=== PATIENT | male | born 1955 | race Caucasian/White ===

== ENCOUNTER 2018-10-27 16:26 | Inpatient (IN) | payer OTHER ==
[2018-10-27 17:32] LABS: Urine Appearance Cloudy; Urine Bacteria Absent (Absent); Urine Bilirubin Negative (Negative); Urine Blood 2+ (Negative); Urine Color Yellow; Urine Glucose Negative (Negative); Urine Ketones Negative (Negative); Urine Nitrite Negative (Negative); Urine Protein 1+(30 mg/dL) (Negative); Urine Red Blood Cell 3+(>10/hpf) (Absent); Urine Urobilinogen Negative (Negative); Urine White Blood Cell 3+(>20/hpf) (Absent)
[2018-10-27] MEDS ORDERED: Acetaminophen TAB* 325 MG PO ONE (20:13)
[2018-10-27] MEDS ORDERED: Morphine 4 MG/ML VIAL (1 ml) 4 MG/ML VIAL IV ONE (20:13)
[2018-10-27] MEDS ORDERED: NS 0.9% 1000 ML** 1,000 ML IV.FLUID IV ONE (20:14)
[2018-10-27] MEDS ORDERED: Ondansetron INJ* 2 MG/ML VIAL IV ONE (20:15)
[2018-10-27] MEDS ORDERED: cefTRIAXone(*) 1 GM in NS 0.9% 50 ML* 50 ML IVPB ONE (20:15)
--- NOTE | 2018-10-27 20:25 | ED ---
GI/ HPI - HPI Summary HPI Summary: 63-year-old male presents with abdominal pain for the past week. He has lab work and ultrasound on sunday and they thought it was pancreatitis as gurtheris. He states he was prescribe pain medication. They did not do a urine culture. He states that since yesterday he's been having urinary symptoms like dysuria. no hx of uti but does have hx of bph. He is also been having fever and chills. He admits to abdominal pain diffuse. denies any back pain. Denies any cough. No chest pain or shortness of breath. He states he just feels ill. - History of Current Complaint Chief Complaint: EDAbdPain Time Seen by Provider: 10/27/18 20:06 Stated Complaint: ACUTE PANCREATITIS PER PT Pain Intensity: 8 - Allergy/Home Medications Allergies/Adverse Reactions: Allergies Allergy/AdvReac Type Severity Reaction Status Date / Time No Known Allergies Allergy Verified 10/27/18 20:14 Home Medications: Home Medications Ezetimibe 10 mg PO DAILY 10/27/18 [History Confirmed 10/27/18] Gemfibrozil 600 mg PO BID 10/27/18 [History Confirmed 10/27/18] Lisinopril 10 mg PO DAILY 10/27/18 [History Confirmed 10/27/18] Omeprazole 40 mg PO DAILY 10/27/18 [History Confirmed 10/27/18] Tamsulosin HCl 0.4 mg PO BID 10/27/18 [History Confirmed 10/27/18] PMH/Surg Hx/FS Hx/Imm Hx Endocrine/Hematology History: Denies: Hx Anticoagulant Therapy Cardiovascular History: Reports: Hx Hypertension GI History: Reports: Other GI Disorders - pancreatitis Infectious Disease History: No Infectious Disease History: Denies: Traveled Outside the [place] in Last 30 Days - Family History Known Family History: Positive: Non-Contributory - Social History Alcohol Use: None Substance Use Type: Reports: None Smoking Status (MU): Light Every Day Tobacco Smoker Review of Systems Positive: Fever, Chills Negative: Chest Pain Negative: Shortness Of Breath Positive: Abdominal Pain All Other Systems Reviewed And Are Negative: Yes Physical Exam Triage Information Reviewed: Yes Vital Signs On Initial Exam: Initial Vitals Temp Pulse Resp BP Pulse Ox 99.9 F 129 16 118/82 94 10/27/18 16:33 10/27/18 16:33 10/27/18 16:33 10/27/18 16:33 10/27/18 16:33 Vital Signs Reviewed: Yes Appearance: Positive: Ill-Appearing Skin: Positive: Warm, Dry Head/Face: Positive: Normal Head/Face Inspection Eyes: Positive: Normal, EOMI, CORRIE, Conjunctiva Clear ENT: Positive: Pharynx normal, TMs normal Respiratory/Lung Sounds: Positive: Clear to Auscultation, Breath Sounds Present Cardiovascular: Positive: Normal, RRR Abdomen Description: Positive: Soft, CVA Tenderness (R), CVA Tenderness (L), Other: - moderate diffuse abd pain Bowel Sounds: Positive: Present Musculoskeletal: Positive: Normal Neurological: Positive: Normal Psychiatric: Positive: Normal Diagnostics - Vital Signs Vital Signs Temp Pulse Resp BP Pulse Ox 10/27/18 20:23 101.1 F 10/27/18 20:14 117 110/78 95 10/27/18 20:12 117 96 10/27/18 19:46 99.8 F 112 18 106/68 94 10/27/18 17:49 100.0 F 124 17 125/64 98 10/27/18 16:33 99.9 F 129 16 118/82 94 - Laboratory Lab Results: Lab Results 10/27/18 Range/Units 17:19 Urine Color Yellow Urine Appearance Cloudy Urine pH 5.0 (5-9) Ur Specific [place] 1.020 (1.010-1.030) Urine Protein 1+(30 mg/dl) A (Negative) Urine Ketones Negative (Negative) Urine Blood 2+ A (Negative) Urine Nitrate Negative (Negative) Urine Bilirubin Negative (Negative) Urine Urobilinogen Negative (Negative) Ur Leukocyte Esterase 3+ A (Negative) Urine WBC (Auto) 3+(>20/hpf) A (Absent) Urine RBC (Auto) 3+(>10/hpf) A (Absent) Urine Bacteria Absent (Absent) Urine Glucose Negative (Negative) Urine Ascorbic Acid * A (Negative) Result Diagrams: 10/27/18 20:31 10/27/18 20:31 Lab Statement: Any lab studies that have been ordered have been reviewed, and results considered in the medical decision making process. Re-Evaluation - Re-Evaluation First Eval Re-Evaluation Time: 21:51 Comment: feeling better, 02 decreased so placed on oxygen Second Eval Re-Evaluation Time: 22:58 Comment: blood pressure dropped though could be related to morphine GIGU Course/Dx - Course Course Of Treatment: 63-year-old male presents with abdominal pain for the past week. He has lab work and ultrasound on sunday and they thought it was pancreatitis as gurtheris. He states he was prescribe pain medication. They did not do a urine culture. He states that since yesterday he's been having urinary symptoms like dysuria. no hx of uti but does have hx of bph. He is also been having fever and chills. He admits to abdominal pain diffuse. denies any back pain. Denies any cough. No chest pain or shortness of breath. He states he just feels ill. On exam patient is tachycardic and has a fever. Lungs clear auscultation. Abdomen moderate diffuse tenderness. wbc 19. crp elevated. urine shows uti. gave dose of rocephin. gave morphine and after o2 stats drop and became hypotensive. gave fluids as a bolus after second line. believe hypotension in more likely due to morphine rather than severe sepsis at this point. discussed case with dr villanueva who agrees to admit. - Diagnoses Differential Diagnoses - Male: Pancreatitis, Pyelonephritis, Urinary Tract Infection Provider Diagnoses: UTI (urinary tract infection), Sepsis - Critical Care Time Critical Care Time: 30-74 min - 60 Discharge - Sign-Out/Discharge Documenting (check all that apply): Patient Departure - Discharge Plan Condition: Stable Disposition: ADMITTED TO [facility] - Billing Disposition and Condition Condition: STABLE Disposition: Admitted to [facility]
[2018-10-27 20:45] LABS: ABS Monocytes 1.3 10^3/ul (0-0.8); Eosinophil % 0.2 %; Hematocrit 48 % (42-52); Hemoglobin 16.2 g/dL (14.0-18.0); Mean Corpuscular HGB Conc 34 g/dL (31-36); Mean Corpuscular Hemoglobin 31 pg (27-31); Mean Corpuscular Volume 90 fL (80-94); Platelet Count 237 10^3/uL (150-450); Red Blood Count 5.28 10^6 /uL (4.18-5.48); Red Cell Distribution Width 14 % (10-15); White Blood Count 19.4 10^3/uL (3.5-10.8)
[2018-10-27 20:52] LABS: Activated Partial Thrombo Time 36.4 seconds (26.0-38.0); INR 1.09 (0.82-1.09)
[2018-10-27 20:59] LABS: Albumin 4.5 g/dL (3.2-5.2); Albumin/Globulin Ratio 1.8 (1-3); BUN/Creatinine Ratio 14.8 (8-20); C Reactive Protein 29.65 mg/L (<8.01); Calcium 9.5 mg/dL (8.6-10.3); EGFR Non-African American 64.4 (>60); Globulin 2.5 g/dL (2-4); Potassium 3.8 mmol/L (3.5-5.0); Total Bilirubin 0.8 mg/dL (0.2-1.0)
[2018-10-27] MEDS ORDERED: Iohexol 300* (CONTRAST) 10 ML SDV IV ONE (21:04)
[2018-10-27] MEDS ORDERED: Polyethylene Glycol 3350* 17 GM PACKET PO PRN (23:47)
[2018-10-27] MEDS ORDERED: Ondansetron INJ* 2 MG/ML VIAL IV PRN (23:47)
[2018-10-27] MEDS ORDERED: Al Hydrox/Mg Hydrox/Simet LIQ* 30 ML UDC PO PRN (23:47)
[2018-10-27] MEDS ORDERED: Magnesium Hydroxide LIQ* 30 ML UDC PO PRN (23:47)
[2018-10-27] MEDS ORDERED: Albuterol HFA INHALER* 8 gm MDI INH PRN (23:54)
[2018-10-28] MEDS: Nicotine PATCH 21 MG/24 HR* PATCH TRANSDERM SCH ×2 (01:20→09:08)
[2018-10-28] MEDS: Acetaminophen TAB* 325 MG PO PRN ×2 (01:20→23:09)
--- NOTE | 2018-10-28 01:22 | HP ---
CC: Jose Rivera MD * HISTORY AND PHYSICAL: DATE OF ADMISSION: 10/27/18 TIME OF EVALUATION: 2350 PRIMARY CARE PHYSICIAN: Jose Rivera MD CHIEF COMPLAINT: Abdominal pain and burning with urination. HISTORY OF PRESENT ILLNESS: This is a 63-year-old male with past medical history of hypertension and BPH, who presented to the emergency room with worsening abdominal discomfort and dysuria. The patient states he has had diffuse abdominal pain for the past 2 weeks. Then he developed burning with urination last Sunday on 10/19/18. He went to see his primary care physician on 10/22/18. He developed dysuria on 10/26/18. He did see his PCP prior to that on 10/22/18. He was diagnosed with pancreatitis. He had labs done and he had a gallbladder ultrasound done the following day. He was given hydrocodone for which he took 2 tabs for and he has been having issues with constipation since. As mentioned, his dysuria developed on 10/26/18 and worsening urgency. He states he normally gets up during the night every 2 hours , but the urgency has been more frequent than that and today he developed a low- grade temp. He has been nauseated with no vomiting. No chest pain, no shortness of breath. Otherwise, remaining review of systems negative. In the emergency room, the patient had labs and imaging and was found to have urinary tract infection. He was initially given 4 mg of Zofran for his pain and he dropped his blood pressure and was given 3600 mL of normal saline, Zofran 4 mg, ceftriaxone 1 g and 650 of Tylenol and blood cultures were obtained. Now, the patient is still currently with diffuse abdominal discomfort. PAST MEDICAL HISTORY: 1. History of BPH, followed by Dr. Sousa. 2. GERD. 3. Hypertension. 4. Hyperlipidemia. 5. History of pancreatitis. MEDICATIONS: 1. Tamsulosin 0.4 mg p.o. b.i.d. 2. Omeprazole 40 mg daily. 3. Lisinopril 10 mg daily. 4. Gemfibrozil 600 mg p.o. b.i.d. 5. Ezetimibe 10 mg p.o. daily. ALLERGIES: No known drug allergies. FAMILY HISTORY: Mother is alive. Father from emphysema. SOCIAL HISTORY: The patient lives at home with his , who is his healthcare proxy. He still smoking 1 pack per day for the past 45 years. He is retired from [employer]. No history of alcohol or illicit drug use. Code status is full code. REVIEW OF SYSTEMS: A 14-point review of systems as mentioned in the HPI, otherwise negative. PHYSICAL EXAMINATION GENERAL: In no acute distress, resting comfortably with his at the bedside. VITAL SIGNS: T-max 101.1, pulse rate 94, respiratory rate 18, oxygen saturation is 98% on 2 L, blood pressure 102/64. HEENT: Head: Normocephalic. Pupils are equal and reactive, anicteric. Oropharynx: Mucous membranes moist. NECK: Supple. No lymphadenopathy. No nuchal rigidity. RESPIRATORY: Diminished breath sounds. Faint bilateral expiratory wheeze. CARDIAC: Tachycardic, soft systolic murmur heard throughout. ABDOMEN: Positive bowel sounds. Mildly firm, diffuse tender, and no rebound, no guarding. EXTREMITIES: No clubbing, cyanosis or edema. +1 DPs. NEUROLOGIC: Alert and oriented x3. No gross focal neurologic deficits. DIAGNOSTIC STUDIES/LAB DATA: White count 19.4, hemoglobin 16.2, hematocrit 48 , platelets 237. INR is 1.09. Sodium 133, potassium 3.8, chloride 99, bicarb 23, BUN 17, creatinine 1.15, glucose 142. CRP is 29. Lactic acid 1.9. Lipase 48. Urine shows 2+ blood, 2+ leukocytes, 2 + whites, 2+ reds, bacteria absent. Radiographic Data: Abdomen and pelvic CT moderate fatty liver, mild prostatic enlargement. ASSESSMENT: This is a 63-year-old male with past medical history of benign prostatic hypertrophy, who presents to the emergency room with diffuse abdominal pain and dysuria, found to have urinary tract infection with leukocytosis. 1. Dysuria: Assessment: The patient's history and physical consistent with sepsis secondary to urinary tract infection. The patient has been fluid resuscitated, suspect the morphine dropped his blood pressures. Blood cultures were also obtained. He feels he has barely urinated since getting almost nearly 4 L of fluid. We will check a bladder scan now and continue that q.8 and check a postvoid residual as well with his history of PVR. We will continue him on LR. Change antibiotics to Cefepime. Recommend followup with the urine cultures and blood cultures. 2. Chronic medical problems: Benign prostatic hypertrophy: Continue him on tamsulosin. 3. Gastroesophageal reflux disease: We will place him on pantoprazole and place him on omeprazole. 4. Hypertension: Hold his lisinopril in the setting of systolic blood pressure. 5. Hyperlipidemia: Continue his gemfibrozil and ezetimibe. 6. FEN: Place the patient on a regular diet. 7. Tobacco use: Place a nicotine patch and albuterol inhaler as needed as he did have some wheezing on exam. 8. DVT prophylaxis: The patient scores high risk. We will order Lovenox subcu daily. 9. Code status: Full code. PATIENT TIME: Greater than 45 minutes was spent doing the history and physical , more than half the time was direct patient contact. [id number]/CPS #: [id number] JALIL
[2018-10-28] MEDS: Lactated Ringers 1000 ML Bag* 1,000 ML IV ONE ×2 (01:32→08:03)
[2018-10-28] MEDS: Lactated Ringers 1000 ML Bag* 1,000 ML IV SCH ×3 (02:37→19:41)
[2018-10-28 06:25] LABS: ABS Lymphocytes 0.9 10^3/ul (1.0-4.8); ABS Monocytes 1.1 10^3/ul (0-0.8); ABS Neutrophils 16.5 10^3/ul (1.5-7.7); Eosinophil % 0.1 %; Hematocrit 41 % (42-52); Hemoglobin 13.7 g/dL (14.0-18.0); Mean Corpuscular HGB Conc 34 g/dL (31-36); Mean Corpuscular Hemoglobin 30 pg (27-31); Mean Corpuscular Volume 90 fL (80-94); Mean Platelet Volume 7.9 fL (7.4-10.4); Platelet Count 175 10^3/uL (150-450); Red Blood Count 4.54 10^6 /uL (4.18-5.48); Red Cell Distribution Width 13 % (10-15); White Blood Count 18.5 10^3/uL (3.5-10.8)
[2018-10-28 06:41] LABS: BUN/Creatinine Ratio 14.2 (8-20); Calcium 8.2 mg/dL (8.6-10.3); EGFR African American 85.7 (>60); EGFR Non-African American 70.8 (>60); Potassium 3.8 mmol/L (3.5-5.0)
[2018-10-28] MEDS: Enoxaparin(*) 40 MG/0.4 ML SYR SUBCUT SCH (08:27)
[2018-10-28] MEDS: Cefepime 1 GM in Dextrose(*) 1 GM/50 ML BAG IV SCH ×2 (08:27→21:45)
[2018-10-28] MEDS: Tamsulosin CAP* 0.4 MG PO SCH ×2 (08:28→21:46)
[2018-10-28] MEDS: Ezetimibe TAB* 10 MG PO SCH (08:28)
[2018-10-28] MEDS: Pantoprazole TAB * 40 MG TAB PO SCH (08:28)
[2018-10-28] MEDS: Gemfibrozil TAB* 600 MG PO SCH ×2 (08:28→21:46)
[2018-10-28] MEDS: Nicotine Patch Removal NOTE FOLLOW UP SCH (09:07)
--- NOTE | 2018-10-28 13:48 | PN ---
Subjective Date of Service: 10/28/18 Interval History: Patient reports unable to urinate since 3 am after several attempts, nursing reports bladder scan > than 356 , reports patient is uncomfortable. Honeycutt cath ordered initial output 1200 cc - will leave honeycutt in place for urinary retention. reports fever overnight Patient reports abd pain has improved since honeycutt placement, does report mild residual lower abd pain. Denies chest pain or shortness of breath. Family History: Unchanged from Admission Social History: Unchanged from Admission Past Medical History: Unchanged from Admission Objective Active Medications: Acetaminophen (Tylenol Tab*) 650 mg PO Q4H PRN PRN Reason: FEVER/PAIN Last Admin: 10/28/18 01:20 Dose: 650 mg Al Hydrox/Mg Hydrox/Simethicone (Maalox Plus*) 30 ml PO Q6H PRN PRN Reason: INDIGESTION Albuterol (Ventolin Hfa Inhaler*) 1 puff INH Q4H PRN PRN Reason: SOB/WHEEZING Ezetimibe (Zetia Tab*) 10 mg PO DAILY [facility] Last Admin: 10/28/18 08:28 Dose: 10 mg Enoxaparin Sodium (Lovenox(*)) 40 mg SUBCUT Q24H [facility] Last Admin: 10/28/18 08:27 Dose: 40 mg Gemfibrozil (Lopid Tab*) 600 mg PO BID [facility] Last Admin: 10/28/18 08:28 Dose: 600 mg Lactated Ringer's (Lactated Ringers 1000 Ml Bag*) 1,000 mls @ 125 mls/hr IV PER RATE [facility] Last Admin: 10/28/18 02:37 Dose: 125 mls/hr Cefepime HCl (Maxipime 1 Gm In Dextrose Duplex (*)) 1 gm in 50 mls @ 100 mls/ hr IV Q12H [facility] Last Admin: 10/28/18 08:27 Dose: 100 mls/hr Magnesium Hydroxide (Milk Of Magnesia Liq*) 30 ml PO Q6H PRN PRN Reason: CONSTIPATION Nicotine (Nicotine Patch 21 Mg/24 Hr*) 1 patch TRANSDERM DAILY [facility] Last Admin: 10/28/18 09:08 Dose: Not Given Ondansetron HCl (Zofran Inj*) 4 mg IV Q4H PRN PRN Reason: NAUSEA/VOMITING Pantoprazole Sodium (Protonix Tab*) 40 mg PO DAILY [facility] Last Admin: 10/28/18 08:28 Dose: 40 mg Pharmacy Profile Note (Nicotine Patch Removal Note*) 1 note PATCH OFF 2100 [facility] Pharmacy Profile Note (Nicotine Patch Removal Note*) 1 note FOLLOW UP 0600 [facility] Last Admin: 10/28/18 09:07 Dose: Not Given Polyethylene Glycol/Electrolytes (Miralax*) 17 gm PO DAILY PRN PRN Reason: CONSTIPATION Tamsulosin HCl (Flomax Cap*) 0.4 mg PO BID [facility] Last Admin: 10/28/18 08:28 Dose: 0.4 mg Vital Signs - 8 hr 10/28/18 10/28/18 08:00 12:00 Temperature 98.9 F 97.8 F Pulse Rate 98 96 Respiratory 22 19 Rate Blood Pressure 121/63 107/62 (mmHg) O2 Sat by Pulse 98 96 Oximetry Oxygen Devices in Use Now: None Appearance: alert, resting in bed no acute distress Eyes: No Scleral Icterus Ears/Nose/Mouth/Throat: Clear Oropharnyx, Mucous Membranes Moist Neck: NL Appearance and Movements; NL JVP, Trachea Midline Respiratory: Symmetrical Chest Expansion and Respiratory Effort, Clear to Auscultation Cardiovascular: NL Sounds; No Murmurs; No JVD, No Edema Abdominal: - - BS active x 4, soft, mild tenderness noted to lower abd with palpation. Extremities: No Edema, No Clubbing, Cyanosis Skin: No Rash or Ulcers Neurological: Alert and Oriented x 3 Nutrition: Taking PO's Result Diagrams: 10/28/18 06:19 10/28/18 06:19 Additional Lab and Data: Lab Results 10/27/18 Range/Units 17:19 Urine Color Yellow Urine Appearance Cloudy Urine pH 5.0 (5-9) Ur Specific [place] 1.020 (1.010-1.030) Urine Protein 1+(30 mg/dl) A (Negative) Urine Ketones Negative (Negative) Urine Blood 2+ A (Negative) Urine Nitrate Negative (Negative) Urine Bilirubin Negative (Negative) Urine Urobilinogen Negative (Negative) Ur Leukocyte Esterase 3+ A (Negative) Urine WBC (Auto) 3+(>20/hpf) A (Absent) Urine RBC (Auto) 3+(>10/hpf) A (Absent) Urine Bacteria Absent (Absent) Urine Glucose Negative (Negative) Urine Ascorbic Acid * A (Negative) Microbiology and Other Data: Microbiology 10/27/18 17:19 Urine Culture - Preliminary Urine Escherichia Coli Assess/Plan/Problems-Billing Assessment: - Patient Problems (1) Sepsis Current Visit: Yes Status: Acute Comment: -met severe sepsis on admission r/ t UTI was given IVF 30cc/kg bolus - lactic acid 3.2 , wbc's 19.4, fever 101.4- on admission to ER- will order repeat lactic acid - IVF infusing at 125cc - continue cefepime (2) UTI (urinary tract infection) Current Visit: Yes Status: Acute Comment: Will continue on cefepime - Urine culture with e coli >100,000 - continue IVF at 125cc/hr (3) Acute urinary retention Current Visit: Yes Status: Acute Code(s): R33.8 - OTHER RETENTION OF URINE SNOMED Code(s): 698769702 Comment: - Patient with UTI and sepsis -Urinary retention this AM unable to void- bladder scan showed 356 in the bladder - honeycutt ordered - 1200cc out at insertion - will leave honeycutt in place for now (4) HTN (hypertension) Current Visit: Yes Status: Acute Code(s): I10 - ESSENTIAL (PRIMARY) HYPERTENSION SNOMED Code(s): 02984922 Comment: BP 107-120's zetia 10 mg (5) Hyperlipidemia Current Visit: Yes Status: Acute Code(s): E78.5 - HYPERLIPIDEMIA, UNSPECIFIED SNOMED Code(s): 75356033 Comment: continue lopid (6) GERD (gastroesophageal reflux disease) Current Visit: Yes Status: Acute Code(s): K21.9 - GASTRO-ESOPHAGEAL REFLUX DISEASE WITHOUT ESOPHAGITIS SNOMED Code(s): 734714172 Comment: continue protonix (7) DVT prophylaxis Current Visit: Yes Status: Acute Code(s): Z29.9 - ENCOUNTER FOR PROPHYLACTIC MEASURES, UNSPECIFIED SNOMED Code(s): 896719098 Comment: lovenox (8) Full code status Current Visit: Yes Status: Acute Code(s): Z78.9 - OTHER SPECIFIED HEALTH STATUS SNOMED Code(s): 012476431 Status and Disposition: discharge home when medically stable
[2018-10-28] MEDS ORDERED: cefTRIAXone(*) 1 GM in NS 0.9% 50 ML* 50 ML IVPB SCH (21:00)
[2018-10-28] MEDS: Lactobacillus Acidophilus* 1 TAB PO SCH (21:45)
[2018-10-28] MEDS: Nicotine Patch Removal NOTE PATCH OFF SCH (21:59)
[2018-10-29] MEDS: Nicotine Patch Removal NOTE FOLLOW UP SCH (05:38)
[2018-10-29] MEDS: Lactated Ringers 1000 ML Bag* 1,000 ML IV SCH (06:16)
[2018-10-29 06:46] LABS: ABS Eosinophils 0.1 10^3/ul (0-0.6); ABS Lymphocytes 0.7 10^3/ul (1.0-4.8); ABS Monocytes 1.3 10^3/ul (0-0.8); ABS Neutrophils 13.2 10^3/ul (1.5-7.7); Eosinophil % 0.5 %; Hematocrit 38 % (42-52); Hemoglobin 12.7 g/dL (14.0-18.0); Lymphocyte % 4.4 %; Mean Corpuscular HGB Conc 34 g/dL (31-36); Mean Corpuscular Hemoglobin 31 pg (27-31); Mean Corpuscular Volume 90 fL (80-94); Mean Platelet Volume 8.6 fL (7.4-10.4); Platelet Count 144 10^3/uL (150-450); Red Blood Count 4.16 10^6 /uL (4.18-5.48); Red Cell Distribution Width 13 % (10-15); White Blood Count 15.3 10^3/uL (3.5-10.8)
[2018-10-29 06:51] LABS: BUN/Creatinine Ratio 13.3 (8-20); Calcium 8.5 mg/dL (8.6-10.3); EGFR African American 103.5 (>60); EGFR Non-African American 85.5 (>60); Potassium 3.4 mmol/L (3.5-5.0)
[2018-10-29] MEDS: Ezetimibe TAB* 10 MG PO SCH (08:24)
[2018-10-29] MEDS: Tamsulosin CAP* 0.4 MG PO SCH ×2 (08:24→20:55)
[2018-10-29] MEDS: Gemfibrozil TAB* 600 MG PO SCH ×2 (08:24→20:55)
[2018-10-29] MEDS: Lactobacillus Acidophilus* 1 TAB PO SCH ×2 (08:24→20:55)
[2018-10-29] MEDS: Nicotine PATCH 21 MG/24 HR* PATCH TRANSDERM SCH (08:24)
[2018-10-29] MEDS: Pantoprazole TAB * 40 MG TAB PO SCH (08:24)
[2018-10-29] MEDS: Enoxaparin(*) 40 MG/0.4 ML SYR SUBCUT SCH (08:24)
[2018-10-29] MEDS: Cefepime 1 GM in Dextrose(*) 1 GM/50 ML BAG IV SCH (08:25)
--- NOTE | 2018-10-29 12:02 | PN ---
Subjective Date of Service: 10/29/18 Interval History: Mr. Valentin is feeling better today. He reports feeling significant better from admission. Only complaint is that the catheter is uncomfortable. Denies CP , SOB, N/V. Good appetite. He would like definitive treatment of his BPH as he is concerned about needing a catheter long-term and is concerned about recurrent UTIs. Nursing reports fever last night. Family History: Unchanged from Admission Social History: Unchanged from Admission Past Medical History: Unchanged from Admission Objective Active Medications: Acetaminophen (Tylenol Tab*) 650 mg PO Q4H PRN FEVER/PAIN Al Hydrox/Mg Hydrox/Simethicone (Maalox Plus*) 30 ml PO Q6H PRN INDIGESTION Albuterol (Ventolin Hfa Inhaler*) 1 puff INH Q4H PRN SOB/WHEEZING Ezetimibe (Zetia Tab*) 10 mg PO DAILY [facility] Enoxaparin Sodium (Lovenox(*)) 40 mg SUBCUT Q24H [facility] Gemfibrozil (Lopid Tab*) 600 mg PO BID [facility] Ceftriaxone Sodium 1,000 mg/ (Sodium Chloride) 50 mls @ 200 mls/hr IVPB Q24H [facility] Lactobacillus Rhamnosus (Lactobacillus Acidophilus*) 1 tab PO BID [facility] Magnesium Hydroxide (Milk Of Magnesia Liq*) 30 ml PO Q6H PRN CONSTIPATION Nicotine (Nicotine Patch 21 Mg/24 Hr*) 1 patch TRANSDERM DAILY [facility] Ondansetron HCl (Zofran Inj*) 4 mg IV Q4H PRN NAUSEA/VOMITING Pantoprazole Sodium (Protonix Tab*) 40 mg PO DAILY [facility] Polyethylene Glycol/Electrolytes (Miralax*) 17 gm PO DAILY PRN CONSTIPATION Tamsulosin HCl (Flomax Cap*) 0.4 mg PO BID [facility] Oxygen Devices in Use Now: None Appearance: Middle-aged male standing in room in NAD Eyes: No Scleral Icterus Ears/Nose/Mouth/Throat: Mucous Membranes Moist Neck: NL Appearance and Movements; NL JVP, Trachea Midline Respiratory: Symmetrical Chest Expansion and Respiratory Effort, Clear to Auscultation Cardiovascular: NL Sounds; No Murmurs; No JVD, RRR Abdominal: NL Sounds; No Tenderness; No Distention Extremities: No Edema Skin: No Rash or Ulcers Neurological: Alert and Oriented x 3, NL Gait Lines/Tubes/Other Access: Clean, Dry and Intact Sosa, Clean, Dry and Intact Peripheral IV Nutrition: Taking PO's Result Diagrams: 10/29/18 06:12 10/29/18 06:12 Assess/Plan/Problems-Billing Assessment: Mr. Valentin is a 63 yo M with PMH of BPH, HTN, HLD, and GERD; who presented to the ED with c/o abdominal pain and dysuria and was found to have sepsis secondary to UTI, now with urinary retention. - Patient Problems (1) UTI (urinary tract infection) Comment: - Likely secondary to outlet obstruction from BPH - Urine culture growing pansensitive E. coli - Change from cefepime to ceftriaxone (day 07/28) (2) Sepsis Comment: - Met criteria for severe sepsis on admission with lactic acidosis, leukocytosis , tachycardia; source is UTI - Appropriate fluid bolus and abx administered - Repeat lactic today to ensure normalization - D/c IVF - Plan as above (3) Acute urinary retention Code(s): R33.8 - OTHER RETENTION OF URINE Comment: - Secondary to BPH - Suspect this is chronic to some degree and was a contributing factor to UTI - Initially when Sosa was placed there was 1200mL retained urine - Trial void today (4) HTN (hypertension) Code(s): I10 - ESSENTIAL (PRIMARY) HYPERTENSION Comment: - Normotensive - Hold lisinopril, but will resume at d/c (5) Hyperlipidemia Code(s): E78.5 - HYPERLIPIDEMIA, UNSPECIFIED Comment: - Continue gemfibrozil, Zetia (6) GERD (gastroesophageal reflux disease) Code(s): K21.9 - GASTRO-ESOPHAGEAL REFLUX DISEASE WITHOUT ESOPHAGITIS Comment : - Continue pantoprazole (7) DVT prophylaxis Code(s): Z29.9 - ENCOUNTER FOR PROPHYLACTIC MEASURES, UNSPECIFIED Comment: - Lovenox (8) Full code status Code(s): Z78.9 - OTHER SPECIFIED HEALTH STATUS Comment: Status and Disposition: Inpatient. Anticipate d/c home when medically stable and afebrile for 24 hours, hopefully tomorrow. Attending: Kerry Johnson
[2018-10-29] MEDS: Finasteride TAB* 5 MG PO SCH (13:28)
[2018-10-29] MEDS ORDERED: Polyethylene Glycol 3350* 17 GM PACKET PO PRN (14:37)
[2018-10-29] MEDS ORDERED: Senna TAB PO PRN (14:37)
[2018-10-29] MEDS ORDERED: Magnesium Hydroxide LIQ* 30 ML UDC PO PRN (14:37)
[2018-10-29] MEDS: Acetaminophen TAB* 325 MG PO PRN (15:56)
[2018-10-29] MEDS: Nicotine Patch Removal NOTE PATCH OFF SCH (19:55)
[2018-10-29] MEDS: Docusate CAP* 100 MG PO SCH (20:55)
[2018-10-29] MEDS ORDERED: cefTRIAXone VIAL(*) 1,000 MG in NS 0.9% 50 ML* 50 ML IVPB SCH (21:00)
--- NOTE | 2018-10-29 22:48 | PN ---
Progress Note - Progress Note Date of Service: 10/29/18 Note: Patient with urinary retention bladder scan >400 ml. Discussed straight cath x 1. If still having issues will order honeycutt to be placed back, I suspect this will be the case.
[2018-10-30] MEDS: Nicotine Patch Removal NOTE FOLLOW UP SCH (04:51)
[2018-10-30 05:07] LABS: Urine Appearance Clear; Urine Bacteria Absent (Absent); Urine Bilirubin Negative (Negative); Urine Blood 2+ (Negative); Urine Color Straw; Urine Glucose Negative (Negative); Urine Ketones Negative (Negative); Urine Nitrite Negative (Negative); Urine Protein Negative (Negative); Urine Red Blood Cell Trace(0-2/hpf) (Absent); Urine Specific Gravity 1.004 (1.010-1.030); Urine Urobilinogen Negative (Negative); Urine White Blood Cell 1+(6-10/hpf) (Absent)
[2018-10-30 06:45] LABS: ABS Eosinophils 0.1 10^3/ul (0-0.6); ABS Neutrophils 7.9 10^3/ul (1.5-7.7); Eosinophil % 0.8 %; Hematocrit 36 % (42-52); Hemoglobin 12.6 g/dL (14.0-18.0); Lymphocyte % 9.7 %; Mean Corpuscular HGB Conc 35 g/dL (31-36); Mean Corpuscular Hemoglobin 31 pg (27-31); Mean Corpuscular Volume 88 fL (80-94); Mean Platelet Volume 8.8 fL (7.4-10.4); Platelet Count 158 10^3/uL (150-450); Red Blood Count 4.09 10^6 /uL (4.18-5.48); Red Cell Distribution Width 13 % (10-15)
[2018-10-30 07:00] LABS: BUN/Creatinine Ratio 14.1 (8-20); Calcium 8.4 mg/dL (8.6-10.3); EGFR African American 110.5 (>60); EGFR Non-African American 91.3 (>60); Potassium 3.2 mmol/L (3.5-5.0)
[2018-10-30] MEDS: Finasteride TAB* 5 MG PO SCH (10:04)
[2018-10-30] MEDS: Ezetimibe TAB* 10 MG PO SCH (10:04)
[2018-10-30] MEDS: Tamsulosin CAP* 0.4 MG PO SCH (10:04)
[2018-10-30] MEDS: Nicotine PATCH 21 MG/24 HR* PATCH TRANSDERM SCH (10:05)
[2018-10-30] MEDS: Docusate CAP* 100 MG PO SCH (10:05)
[2018-10-30] MEDS: Gemfibrozil TAB* 600 MG PO SCH (10:05)
[2018-10-30] MEDS: Pantoprazole TAB * 40 MG TAB PO SCH (10:05)
[2018-10-30] MEDS: Lactobacillus Acidophilus* 1 TAB PO SCH (10:05)
[2018-10-30] MEDS: Enoxaparin(*) 40 MG/0.4 ML SYR SUBCUT SCH (10:06)
[2018-10-30] MEDS ORDERED: KCL 20 MEQ/100 ML IVPREMIX* 20 MEQ/100 ML BAG IV ONE (12:59)
[2018-10-30] MEDS ORDERED: Potassium Chlor TAB* 20 MEQ TAB.ER PO ONE (12:59)
[2018-10-30] MEDS ORDERED: Lisinopril TAB* 10 MG PO SCH (14:00)
[2018-10-30 15:26] VITALS: BP 137/72
[2018-10-30] MEDS ORDERED: cefTRIAXone VIAL(*) 1,000 MG in NS 0.9% 50 ML* 50 ML IVPB SCH (16:00)
--- NOTE | 2018-10-30 18:05 | DS ---
CC: Dr. Jose Rivera; Dr. Srini Sousa * DISCHARGE SUMMARY: DATE OF ADMISSION: 10/27/18 DATE OF DISCHARGE: 10/30/18 PRIMARY CARE PROVIDER: Dr. Jose Rivera. UROLOGIST: Dr. Srini Sousa. ATTENDING PHYSICIAN: Dr. Cristina Daley * (dictated by Ana Cristina Linn NP). PRIMARY DIAGNOSES: 1. Urinary tract infection. 2. Severe sepsis. 3. Acute urinary retention. SECONDARY DIAGNOSES: 1. Hypertension. 2. Hyperlipidemia. 3. Gastroesophageal reflux disease. STUDIES WHILE IN THE HOSPITAL: 1. Abdomen and pelvis CT on 10/27/18 reads as moderate fatty liver. Mild prostatic enlargement. 2. Chest x-ray on 10/27/18 reads as interstitial edema suspicious for CHF. HISTORY OF PRESENT ILLNESS AND HOSPITAL COURSE: Mr. Valentin is a 63-year- old male with past medical history of hypertension, hyperlipidemia and BPH, who presented to the emergency room on 10/27/18 with complaints of abdominal pain and dysuria. Please see the history and physical by Dr. Marx for a complete summary of the events leading up to this hospitalization. In short, the patient had vague abdominal pain for approximately 2 weeks and then about a week before presenting to the emergency room he developed dysuria. He did develop a low-grade temp at home and reported nocturia. In the emergency room, the patient was noted to have leukocytosis with a white blood count of 19.4. He additionally was noted to have an elevated lactic acid at 3.2 and was tachycardic up into the 120s; therefore, meeting sepsis criteria. He was started on antibiotics and given IV fluids. The patient was admitted by the Hospitalists. He was continued on cefepime. He did develop acute urinary retention and necessitated Sosa placement with a return of 1200 mL on insertion. Sosa was left in place. A trial void was attempted on 10/29/18, which the patient passed during the day, though overnight was noted again to have urinary retention and another Sosa was placed draining approximately 700 mL. The patient had a urine culture, which grew greater than 100,000 colonies of pansensitive E. coli. Sepsis and lactic acidosis resolved. The patient was changed over to ceftriaxone from cefepime. He additionally was started on finasteride for BPH. The patient did continue to spike fevers. Last fever on 10/29/18 at 3:30 p.m. was 101.8. I did advise the patient that he would need to remain hospitalized until he was 24 hours afebrile. At this point, the patient has been 24 hours afebrile and reports feeling well. He is anxious to return home. He does have some concerns returning home with a Sosa catheter, though has been provided teaching by his nurse today. On exam, he has no focal neurological deficits. His heart has a regular rate and rhythm without murmurs , rubs, or gallops. His lungs are clear to auscultation without rhonchi, wheezes, or rales. There is no edema. Physical assessment is otherwise benign. I will note that his chest x-ray as noted above was concerning for pulmonary edema, though clinically the patient did not show any signs of pulmonary edema and in fact received multiple liters of IV fluids without any respiratory distress. Mr. Valentin is stable for discharge today. Vital signs are as follows: Temp 97.7, heart rate 74, respiratory rate 20, oxygen saturation 97% on room air , blood pressure 137/72. DISCHARGE MEDICATIONS: New medications: 1. Augmentin 875 mg p.o. b.i.d. x6 days. 2. Finasteride 5 mg p.o. daily. 3. Lactobacillus 1 tab p.o. b.i.d. Continued medications: 1. Zetia 10 mg p.o. daily. 2. Gemfibrozil 600 mg p.o. b.i.d. 3. Lisinopril 10 mg p.o. daily. 4. Omeprazole 40 mg p.o. daily. 5. Tamsulosin 0.4 mg p.o. b.i.d. DISCHARGE PLAN: Mr. Valentin will be discharged home. Activity will be as tolerated. Diet will be regular as tolerated. The patient will be returning home with a Sosa and has received teaching from nursing staff about Sosa catheter care and how to use a leg bag. This Sosa will need to remain in place until otherwise directed by Dr. Sousa. Medications are noted above. I have prescribed 6 days of Augmentin to complete a total of 10 days of antibiotic therapy for this complicated UTI. I have additionally placed the patient on finasteride and Lactobacillus. He can continue with his other usual medications as noted above and I have not made any further changes. He should follow up with his primary care provider in 4 to 7 days. He will also need to follow up with Dr. Sousa for further direction and management of this acute urinary retention. We did attempt to make an appointment for the patient, though his insurance does require preauthorization, so the office reports that they will call the patient with an appointment. The patient has been instructed to return to the emergency room or nearest hospital for any worsening of symptoms, shortness of breath, lightheadedness, dizziness, chest discomfort, high fever, chills, night sweats, loss of consciousness, or any other worrisome signs or symptoms. DISCHARGE CONDITION: Stable. DISCHARGE DISPOSITION: Home. This is a summarized report of a complex medical history and hospital stay. For further details, please see the entire medical record. TIME SPENT: Approximately 50 minutes was spent on this discharge. ANA CRISTINA LINN NP [id number]/CPS #: [id number] JALIL
== END 2018-10-30 17:30 | disposition home or self-care (01) | DRG 720 ==
LOC: ED 16:26 → MED 23:47 → OBSVTOIN 10-28 16:00
PROVIDERS: ADMIT Pediatrics; ATTEND Internal Medicine
PROC: 0T9B70Z Drainage of Bladder with Drainage Device, Via Natural or Artificial Opening (ICD-10-PCS; principal; 2018-10-30)
DX: A41.9 Sepsis, unspecified organism (principal); N39.0 Urinary tract infection, site not specified; E87.2 Acidosis; I10 Essential (primary) hypertension; E78.5 Hyperlipidemia, unspecified; K21.9 Gastro-esophageal reflux disease without esophagitis; F17.210 Nicotine dependence, cigarettes, uncomplicated; R65.20 Severe sepsis without septic shock; R33.9 Retention of urine, unspecified; N40.1 Benign prostatic hyperplasia with lower urinary tract symptoms; B96.20 Unspecified Escherichia coli [E. coli] as the cause of diseases classified elsewhere; K76.0 Fatty (change of) liver, not elsewhere classified; R35.1 Nocturia; Z83.6 Family history of other diseases of the respiratory system
CPT/HCPCS: 36415; 71045; 74177; 80048; 80053; 81003; 81015; 82150; 83605; 83690; 85025; 85610; 85730; 86140; 87040; 87077; 87086; 87186; 99284; A9270-GY; G0378; J0692; J0696; J1650; J2270; J2405; J3480; Q9967